=== PATIENT | female | born 1985 | race Caucasian/White ===

== ENCOUNTER → 2017-07-28 | Outpatient (CLI) | payer OTHER ==
[2017-07-28 11:13] LABS: HEMATOCRIT 46.3 % (37.0-47.0); RED BLOOD COUNT 5.25 M/mm3 (4.10-5.30); RED CELL DISTRIBUTION WIDTH 12.9 % (11.5-14.5); WHITE BLOOD COUNT 10.3 K/mm3 (4.8-10.8)
[2017-07-28 11:27] LABS: ALBUMIN 4.2 g/dL (3.5-5.0); BUN/CREATININE RATIO 27.7 (6.0-26.0); POTASSIUM 3.8 mmol/L (3.6-5.0); TOTAL BILIRUBIN 0.7 mg/dL (0.2-1.3); TOTAL PROTEIN 7.5 g/dL (6.3-8.2)
== END ==
LOC: LAB 10:50
PROVIDERS: Family Medicine
DX: E66.9 Obesity, unspecified (principal); E28.2 Polycystic ovarian syndrome; Z88.1 Allergy status to other antibiotic agents

== ENCOUNTER 2017-11-04 12:52 | Emergency (ER) | payer OTHER ==
[~2017-11-04] VITALS: Ht 170.2 cm; Wt 122.3 kg
[2017-11-04] MEDS ORDERED: SERTRALINE HYDR25 MG PO (13:00)
[2017-11-04] MEDS ORDERED: HEATHER0.35 MG PO (13:00)
[2017-11-04] MEDS ORDERED: NAPROXEN500 MG PO (13:00)
[2017-11-04 15:05] VITALS: BP 138/96
== END 2017-11-04 15:05 | disposition home or self-care (01) ==
LOC: ED 12:52
DX: S09.90XA Unspecified injury of head, initial encounter (principal); S00.93XA Contusion of unspecified part of head, initial encounter; V43.52XA Car driver injured in collision with other type car in traffic accident, initial encounter; Y92.410 Unspecified street and highway as the place of occurrence of the external cause; S40.012A Contusion of left shoulder, initial encounter; D35.2 Benign neoplasm of pituitary gland

== ENCOUNTER → 2017-11-10 | Outpatient (CLI) | payer OTHER ==
[2017-11-04 15:05] VITALS: BP 138/96
[~2017-11-10] MED LIST: HEATHER0.35 MG PO; NAPROXEN500 MG PO; SERTRALINE HYDR25 MG PO
[2017-11-10 15:10] LABS: CORTISOL, AM (0800) 13 ug/dL (3-20); PROLACTIN 19.7 ng/mL (5.2-26.5)
[2017-11-10 17:16] LABS: T3 TOTAL 93 ng/dL (87-178)
== END ==
LOC: LAB 05:55
PROVIDERS: Family Medicine
DX: D35.2 Benign neoplasm of pituitary gland (principal)

== ENCOUNTER → 2017-11-24 | Outpatient (CLI) | payer OTHER ==
[2017-11-04 15:05] VITALS: BP 138/96
== END ==
LOC: LAB 18:24
DX: E28.2 Polycystic ovarian syndrome (principal); D35.2 Benign neoplasm of pituitary gland; E66.01 Morbid (severe) obesity due to excess calories; Z68.42 Body mass index [BMI] 45.0-49.9, adult

== ENCOUNTER → 2017-11-25 | Outpatient (CLI) | payer OTHER ==
[2017-11-04 15:05] VITALS: BP 138/96
== END ==
LOC: LAB 06:02
DX: E28.2 Polycystic ovarian syndrome (principal); D35.2 Benign neoplasm of pituitary gland; E66.01 Morbid (severe) obesity due to excess calories; Z68.42 Body mass index [BMI] 45.0-49.9, adult

== ENCOUNTER → 2017-12-27 | Outpatient (CLI) | payer OTHER | LOC: LAB 07:49 | DX: E66.01 Morbid (severe) obesity due to excess calories (principal); E28.2 Polycystic ovarian syndrome; D35.2 Benign neoplasm of pituitary gland; Z68.42 Body mass index [BMI] 45.0-49.9, adult ==

== ENCOUNTER → 2018-01-12 | Outpatient (CLI) | payer OTHER ==
[~2018-01-12] VITALS: Ht 170.2 cm; Wt 122.3 kg
[2018-01-12 08:57] LABS: BUN/CREATININE RATIO 24.7 (6.0-26.0); CALCIUM 8.5 mg/dL (8.4-10.2); POTASSIUM 4.1 mmol/L (3.6-5.0); TOTAL BILIRUBIN 0.4 mg/dL (0.2-1.3); TOTAL PROTEIN 7.2 g/dL (6.3-8.2)
[2018-01-12 08:58] LABS: PARTIAL THROMBOPLASTIN TIME 24.8 SECONDS (21.0-32.0)
[2018-01-12 09:04] LABS: EOS # 0.2 (0.04-0.40); HEMOGLOBIN 14.5 g/dL (12.5-16.0); LYMPH# 2.8 (1.50-4.00); MEAN CELL VOLUME 88 fl (78-100); MEAN CORPUSCULAR HEMOGLOBIN 30 pg (27-31); MEAN CORPUSCULAR HGB CONC 34 g/dL (33-37); MEAN PLATELET VOLUME 9.2 fl (7.4-10.4); MONO # 0.6 (0.20-0.80); NEU # 4.5 (1.40-6.50); PLATELET COUNT 291 K/mm3 (130-400); RED BLOOD COUNT 4.89 M/mm3 (4.10-5.30); RED CELL DISTRIBUTION WIDTH 12.3 % (11.5-14.5); WHITE BLOOD COUNT 8.1 K/mm3 (4.8-10.8)
[2018-01-12 09:11] LABS: URINE APPEARANCE CLEAR; URINE COLOR YELLOW; URINE GLUCOSE NEGATIVE (NEGATIVE); URINE KETONE NEGATIVE (NEGATIVE); URINE PROTEIN(semi-quant) NEGATIVE (NEGATIVE)
[2018-01-12 09:12] LABS: URINE BILIRUBIN NEGATIVE (NEGATIVE); URINE BLOOD NEGATIVE (NEGATIVE); URINE LEUKOCYTE ESTERASE NEGATIVE (NEGATIVE); URINE MUCUS PRESENT (NOT PRESENT); URINE NITRATE NEGATIVE (NEGATIVE); URINE UROBILINOGEN NORMAL (NORMAL); URINE WBC 0-1 /hpf (0-3)
[2018-01-12 09:46] VITALS: BP 136/89
== END ==
LOC: LAB 07:25
PROVIDERS: Family Medicine
DX: Z01.818 Encounter for other preprocedural examination (principal); D35.2 Benign neoplasm of pituitary gland

== ENCOUNTER → 2018-04-14 | Outpatient (CLI) | payer OTHER ==
[2018-01-12 09:46] VITALS: BP 136/89
[2018-04-14 10:36] LABS: EOS # 0.1 (0.04-0.40); EOS % 1.6 % (1.0-5.0); HEMOGLOBIN 14.6 g/dL (12.5-16.0); MEAN CELL VOLUME 89 fl (78-100); MEAN CORPUSCULAR HEMOGLOBIN 29 pg (27-31); MEAN CORPUSCULAR HGB CONC 32 g/dL (33-37); MEAN PLATELET VOLUME 8.7 fl (7.4-10.4); MONO # 0.7 (0.20-0.80); NEU # 5.1 (1.40-6.50); PLATELET COUNT 285 K/mm3 (130-400); RED BLOOD COUNT 5.06 M/mm3 (4.10-5.30); RED CELL DISTRIBUTION WIDTH 12.9 % (11.5-14.5); WHITE BLOOD COUNT 7.9 K/mm3 (4.8-10.8)
[2018-04-14 10:56] LABS: ALBUMIN 4.2 g/dL (3.5-5.0); CALCIUM 8.9 mg/dL (8.4-10.2); POTASSIUM 3.8 mmol/L (3.6-5.0); TOTAL BILIRUBIN 0.8 mg/dL (0.2-1.3); TOTAL PROTEIN 7.3 g/dL (6.3-8.2)
[2018-04-15 02:09] LABS: T3 FREE 2.1 pg/mL (1.7-3.7)
== END ==
LOC: LAB 10:25
PROVIDERS: Physician Assistant
DX: R42 Dizziness and giddiness (principal); D35.2 Benign neoplasm of pituitary gland; E23.2 Diabetes insipidus

== ENCOUNTER → 2020-07-09 | Outpatient (CLI) | payer OTHER ==
[2018-01-12 09:46] VITALS: BP 136/89
== END ==
LOC: LAB 10:34
DX: N94.89 Other specified conditions associated with female genital organs and menstrual cycle (principal)

== ENCOUNTER → 2021-01-16 | Outpatient (CLI) | payer OTHER | LOC: RAD 09:06 | DX: M53.3 Sacrococcygeal disorders, not elsewhere classified (principal); W19.XXXA Unspecified fall, initial encounter ==

== ENCOUNTER → 2021-03-04 | Outpatient (CLI) | payer OTHER ==
[2021-03-04 20:47] LABS: ALBUMIN 4.2 g/dL (3.5-5.0)
[2021-03-04 20:48] LABS: POTASSIUM 3.6 mmol/L (3.5-5.1); SODIUM 142 mmol/L (136-145)
[2021-03-04 20:49] LABS: CALCIUM 10.1 mg/dL (8.3-10.5)
[2021-03-04 20:50] LABS: GLUCOSE 92 mg/dL (65-105); TOTAL PROTEIN 7.5 g/dL (6.4-8.3)
[2021-03-04 20:51] LABS: CARBON DIOXIDE 26 mmol/L (22-29)
[2021-03-04 20:52] LABS: TOTAL BILIRUBIN 0.4 mg/dL (0.2-1.2)
[2021-03-04 20:55] LABS: AST-SGOT 20 U/L (5-34)
[2021-03-04 20:56] LABS: ALT/SGPT 22 U/L (0-55)
[2021-03-05 16:21] LABS: FOLLICLE STIMULATING HORMONE 4.8 mIU/mL (()); LUTENIZING HORMONE 1.3 mIU/mL (()); PROLACTIN AMS 14.7 ng/mL (5.2-26.5)
== END ==
LOC: LAB 20:22
PROVIDERS: Family Medicine
DX: E23.2 Diabetes insipidus (principal); D35.2 Benign neoplasm of pituitary gland; E55.9 Vitamin D deficiency, unspecified